=== PATIENT | female | born 1980 | race Caucasian/White ===

== ENCOUNTER 2017-07-09 13:28 | Inpatient (IN) ==
[2017-07-09] MEDS ORDERED: Tdap (Boostrix) Vaccine 0.5 ML SYRINGE IM ONE (14:39)
--- NOTE | 2017-07-09 14:39 | Emergency Department Note ---
Disposition Clinical Impression: Laceration of brachial artery, right side, initial encounter Disposition: Admitted As Inpatient Condition: Undetermined Time of Disposition: 15:50 General Adult HPI - General Chief complaint: ED Wound/Laceration Stated complaint: right Arm/Hand LAC-through glass door Time Seen by Provider: 07/09/17 13:54 Source: patient, EMS Limitations: no limitations Nursing Notes Reviewed: Yes Vital Signs Reviewed: Yes - History of Present Illness HPI Narrative: Approximately 2 hours prior to arrival patient was knocking on a glass door area she knows that a crack in it whenever her arm went through the door. She states she had a tetanus shot approximately 6 years ago. She is complaining of pain and bleeding to her right arm that she could not control. She also complains of pain to this area. Pain Scale: 8 - Related Data Previous Rx's Medication Instructions Recorded Ondansetron [Zofran ODT] 8 mg SL TID #15 tab.rapdis 01/30/17 Allergies Allergy/AdvReac Type Severity Reaction Status Date / Time No Known Allergies Allergy Verified 07/09/17 13:42 All systems ED: reviewed and negative except as stated. Constitutional: Denies: fever, chills Cardiovascular: Denies: chest pain, palpitations, syncope Respiratory: Denies: cough, dyspnea Gastrointestinal: Denies: abdominal pain, nausea, vomiting, diarrhea Genitourinary: Denies: urgency, dysuria, frequency Musculoskeletal: Reports: other (Right arm pain. Laceration to right antecubital fossa.). Denies: back pain, neck pain Integumentary: Denies: rash, abrasion Neurological: Denies: headache, weakness, numbness Past Medical History - Past Medical History Attestation: Yes The following information was validated with the patient. Source: patient Medical history: Reports: no medical history Psychiatric history: Reports: no psych history AUDITOR history: Reports: no AUDITOR history - Social History Smoking Status: Current every day smoker Smokeless Tobacco Status: No Alcohol use: Reports: none Drug use: Reports: none Physical Exam - General Limitations: no limitations General appearance: alert, in distress (Holding her right arm that is bleeding.) - Head Head exam: atraumatic, normocephalic, normal inspection - Eye Eye exam: Present: normal appearance, PERRL, EOMI - ENT ENT exam: normal exam, normal oropharynx, mucous membranes moist - Neck Neck exam: Present: normal inspection, full ROM, trachea midline - Chest Chest inspection: Present: normal inspection, symmetric chest wall rise - Respiratory Respiratory exam: Present: normal lung sounds bilaterally. Absent: respiratory distress - Cardiovascular Cardiovascular exam: Present: regular rate, normal rhythm, normal heart sounds - Abdominal Exam Abdominal exam: Present: soft, Non-Tender, normal bowel sounds. Absent: tenderness, distention, guarding, rebound, rigidity, organomegaly - Extremities Exam Extremities exam: Present: normal inspection, full ROM, normal capillary refill , other (Patient has approximately 270 her laceration to her right antecubital fossa. There is active bleeding there. It is controlled with direct pressure. The bleeding is arterial. Also has a small abrasion to her right forearm. Wound appears clean. Patient has good pulses distal good sensation distal. Full range of motion of all phalanges.). Absent: pedal edema - Back Exam Back exam: Present: normal inspection, full ROM. Absent: tenderness, CVA tenderness (R), CVA tenderness (L) - Neurological Exam Neurological exam: Present: alert, oriented X3 - Psychiatric Psychiatric exam: Present: normal affect, normal mood - Skin Skin exam: Present: warm, dry, intact, normal color. Absent: rash, cyanosis, diaphoresis, erythema Course Course Narrative: Female patient presenting to emergency department complaining of a 2 hour history of right arm bleeding. She states that she was knocking on a glass door whenever". She states her arm went through. She denies any other injuries. On exam she does have approximately 270 her laceration to her right antecubital fossa. This has some arterial bleeding. It is controlled with direct pressure. She states her last tetanus shot was over 6 years ago. We will update this. She does have a small abrasion to the medial aspect of her right forearm as well. No appreciate any other signs of trauma. She states this is accidental. Denies any SI or HI. She does have full range of motion of all of her phalanges. She has normal sensation and motor and pulses distal to this injury. We have discussed the case with Dr. Misty Singh is coming down to see the patient. He ended up taking the patient to surgery. Patient was agreeable to this. - Consultations Consultation #1: I spoke with Dr. May. He is coming to see the patient. Time: 14:35 Vital Signs Temperature 97.8 F 07/09/17 13:42 Pulse Rate 93 07/09/17 13:42 Respiratory Rate 20 07/09/17 13:42 Blood Pressure 119/87 07/09/17 13:42 O2 Sat by Pulse Oximetry 96 07/09/17 13:42 Temperature 97.8 F 07/09/17 13:42 Pulse Rate 88 07/09/17 14:35 Respiratory Rate 18 07/09/17 15:00 Blood Pressure 107/76 07/09/17 15:00 O2 Sat by Pulse Oximetry 99 07/09/17 14:35 Oxygen Delivery Oxygen Delivery Room Air Medical Decision Making - Medical Records Medical records reviewed: Yes I reviewed the patient's medical records. - Lab Data Lab results reviewed: Yes I reviewed the patient's lab results. Result diagrams: 07/09/17 14:50 07/09/17 14:50 Lab Results 07/09/17 07/09/17 07/09/17 Range/Units 14:50 14:50 14:50 WBC 8.3 (4.3-11.1) K/mcL RBC 3.98 (3.82-4.97) M/mcL Hgb 12.4 (11.5-15.4) g/dL Hct 37.5 (35.3-44.9) % MCV 94.2 (83.0-100.0) fL MCH 31.2 (28.0-33.3) pg MCHC 33.1 (31.6-35.5) g/dL RDW 12.8 (11.5-14.5) % Plt Count 231 (140-400) K/mcL MPV 11.3 (9.4-12.4) fL Seg Neutrophils % 62.0 % Lymphocytes % 32.0 % Monocytes % 6.0 % Neutrophils # 5.2 (1.6-8.9) K/mcL Lymphocytes # 2.7 (0.6-4.6) K/mcL Monocytes # 0.5 (0.0-1.3) K/mcL Reactive Lymphocytes Present A (Not Present) Platelet Estimate Normal (Normal) PT 11.2 (9.4-12.1) Seconds INR 1.0 Sodium 137 (136-145) mEq/L Potassium 4.2 (3.5-4.5) mEq/L Chloride 106 (98-109) mEq/L Carbon Dioxide 25 (19-29) mEq/L BUN 12 (7-20) mg/dL Creatinine 0.78 (0.57-1.11) mg/dL Est GFR ( Amer) > 60 (> 60) Est GFR (Non-Af Amer) > 60 (> 60) BUN/Creatinine Ratio 15 (6-26) Glucose 78 (70-99) mg/dL Calculated Osmolality 283 (280-300) Calcium 9.1 (8.6-10.8) mg/dL Attestation Statement - Attestation Attestation: I, Irwin Guajardo, examined this patient and my medical decision-making was reviewed with the SUPPLY ROOM CLERK/PA/Advanced Practice Nurse/Resident Physician. I agree with the documented findings, disposition and treatment plan as described except to the extent set forth below. 36-year-old female presents to the emergency department with multiple lacerations to the right upper extremity. Patient states she was "knocking on a door" and did not realize that there was a crack in the glass. Patient states that her arm went through the glass and she sustained lacerations. Physical evaluation in the emergency department shows superficial lacerations to the right hand and right forearm however there is a deep laceration to the right antecubital space which has pulsatile blood flow when evaluated. Patient was placed in a tourniquet and pressure dressing and the vascular surgeon was contacted. Dr. Morin evaluated the patient in the emergency department and will take the patient to the OR. Vital signs stable in the emergency department.
--- NOTE | 2017-07-09 14:53 | Anesthesia Evaluation PreOp ---
Date of Encounter: 07/09/17 Time of Encounter: 14:50 - Past History Planned Operation: r brachial a lac Cardiac History: Denies any Significant Hx Pulmonary History: Smoker [facility] DEPARTMENT History: Denies Any Significant HX Other Medical History: Denies Any Significant HX Anesthesia History: No Prior Anesthetic Complications, Past Anesthesia (denies fh anesthetic concerns) Test: Negative (lmp today) Alcohol Use: none Drug use: none Medications and Allergies Ondansetron [Zofran ODT] 8 mg SL TID #15 tab.rapdis 01/30/17 [Rx] 3 Allergy/AdvReac Type Severity Reaction Status Date / Time No Known Allergies Allergy Verified 07/09/17 13:42 - Meds/Allergy Pre-op Review Medications Reviewed: Yes Allergies Reviewed: Yes Beta Blockers on Current Med List: No Anesthesia Results - Labs 07/09/17 14:50 Anesthesia Exam O2 Sat Height 1.68 m Weight 65.045 kg O2 Sat by Pulse Oximetry 99 O2 Sat by Pulse Oximetry 96 Vital Signs Temp Pulse Resp BP Pulse Ox 97.8 F 93 20 119/87 96 07/09/17 13:42 07/09/17 13:42 07/09/17 13:42 07/09/17 13:42 07/09/17 13:42 Height: 1.68 Weight: 65 NPO (# of Hours): >8 - HEENT Pupil (Motor): Pupils equal, EOMI Mallampati: I Teeth: Normal Oral Opening: Greater than 3 - [address] DEPARTMENT LOC: Oriented [facility] DEPART[facility] Motor: Normal RUE, Normal LUE, Normal RLE, Normal LLE, Normal Face [address] DEPARTMENT Sensory: Normal: RUE, LUE, RLE, LLE, Face - Cardiac Rhythm: Regular Murmur: None - Pulmonary Breath Sounds: bilateral Clear Respiratory Effort: Symmetrical Anesthesia Assess/Plan ASA Score: 2, E Modified Shivam Scale for Level of Consciousness: Cooperative, oriented, and tranquil Anesthetic Plan: General Monitoring Plan: Standard Monitors Recovery Plan: PACU
[2017-07-09 14:57] LABS: Hematocrit 37.5 % (35.3-44.9); Hemoglobin 12.4 g/dL (11.5-15.4); Mean Corpuscular HGB Conc 33.1 g/dL (31.6-35.5); Mean Corpuscular Hemoglobin 31.2 pg (28.0-33.3); Mean Corpuscular Volume 94.2 fL (83.0-100.0); Mean Platelet Volume 11.3 fL (9.4-12.4); Platelet Count 231 K/mcL (140-400); Red Blood Count 3.98 M/mcL (3.82-4.97); Red Cell Distribution Width 12.8 % (11.5-14.5)
--- NOTE | 2017-07-09 15:00 | Vascular/Endovascular H&P ---
Date of Encounter: 07/09/17 Time of Encounter: 14:40 Assessment and Plan (1) Laceration of brachial artery, right side, initial encounter Current Visit: Yes Status: Acute The patient has a acute laceration to the right upper extremity with pulsatile bleeding. Arterial injury is apparent. She will proceed emergently to the OR for wound exploration and possible arterial repair versus ligation. The risks, benefits and alternatives were discussed and all questions were answered. The patinet expressed understanding and wishes to proceed. Her extremity neurologic exam is limited due to her pain. At this time, she does not appear to have focal nerve deficits. (2) Tobacco abuse Current Visit: Yes Status: Chronic The patient was counseled regarding smoking cessation. She was advised that smoking may lead to limb ischemia and possible limb loss. History of Present Illness Chief complaint: Right upper extremity hemorrhage HPI: Ms. Alfaro is a 36 year old female who states that earlier today she was knocking on a glass door. Unfortunately the door had a crack in it and her arm went through. She immediately noticed pulsatile bleeding from the right arm. She applied pressure and then came to the ER for further evaluation. On arrival she was alert. She complained of left arm pain. She was hemodynamically stable. She was evlauated by the ER and noted to have pulsatile bleeding from her laceration and brachial artery injury was suspected. Vascular surgery was consulted for further evaluation. The patient is alert and comfortable except for right arm and forearm pain. She denies any focal neurologic deficits. 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 She denies chest pain or shortness of breath. Past Med Surg Social Fam HX - Past Medical History Medical history: no medical history Psychiatric history: no psych history - Social History Smoking Status: Current every day smoker Smokeless Tobacco Status: No Alcohol use: none Drug use: none Medications and Allergies Ondansetron [Zofran ODT] 8 mg SL TID #15 tab.rapdis 01/30/17 [Rx] 3 Allergy/AdvReac Type Severity Reaction Status Date / Time No Known Allergies Allergy Verified 07/09/17 13:42 All Systems Review: A 10-system review of systems was performed and is negative for pertinent findings except as documented above in the HPI. Exam Vital Signs, Last 4 Hours Temp Pulse Resp BP Pulse Ox 07/09/17 14:35 88 18 106/92 99 07/09/17 13:42 97.8 F 93 20 119/87 96 General: Present: Conversant, No Apparent Distress HEENT: Present: Atraumatic, Pupils equal Neck: Absent: JVD, Lymphadenopathy, Tracheal deviation Cardiac: Present: Reg Rate and Rhythm, No Murmur Lungs: Present: Normal Breath Sounds, No Wheeze, Rales, Rhonchi Neuro: Present: Alert and responsive, No focal deficits noted, Motor nerves grossly intact (right upper extremity motor function appears limited by pain), Sensory nerves grossly intact Abdomen: Present: Soft, Non-tender Vascular: Present: Normal capillary refill, Pulse, normal (right radial pulse is palpable). Absent: Cyanosis, Edema Skin: Present: Other (multiple right upper extremity abrasions, right arm laceration along distal bicep) Musculoskeletal: Present: No Chest Wall Tenderness
[2017-07-09 15:03] LABS: Prothrombin Time 11.2 Seconds (9.4-12.1)
[2017-07-09] MEDS ORDERED: Lidocaine 1% 20 ML MDV ONE (15:07)
[2017-07-09] MEDS ORDERED: Heparin 1,000 UNITS/500 mL NS 500 ML ONE (15:07)
[2017-07-09 15:14] LABS: BUN/Creatinine Ratio 15 (6-26); Blood Urea Nitrogen 12 mg/dL (7-20); Calcium 9.1 mg/dL (8.6-10.8); Carbon Dioxide 25 mEq/L (19-29); Chloride 106 mEq/L (98-109); Glucose 78 mg/dL (70-99); Osmolality,Calculated 283 (280-300); Potassium 4.2 mEq/L (3.5-4.5); Sodium 137 mEq/L (136-145); eGFR For African Americans > 60 (> 60); eGFR For Non-African Americans > 60 (> 60)
[2017-07-09] MEDS ORDERED: Ringers Solution, Lactated 1,000 ML IVC SCH (15:15)
[2017-07-09 15:34] LABS: Lymphocytes # 2.7 K/mcL (0.6-4.6); Monocytes # 0.5 K/mcL (0.0-1.3); Neutrophils # 5.2 K/mcL (1.6-8.9); Platelet Estimate Normal (Normal); Reactive Lymphocytes Present (Not Present)
[2017-07-09] MEDS ORDERED: Lidocaine -MPF 2% 2 ML VIAL ONE (16:13)
[2017-07-09] MEDS ORDERED: *HR* Propofol 200 MG/20 ML VIAL IVP ONE (16:13)
[2017-07-09] MEDS ORDERED: *HR* Midazolam HCl 2 MG/2 ML VIAL ONE (16:13)
[2017-07-09] MEDS ORDERED: Lidocaine -MPF 4% 5 ML AMPUL ONE (16:14)
[2017-07-09] MEDS ORDERED: *HR* Succinylcholine 200 MG/10 ML VIAL IVP ONE (16:14)
[2017-07-09] MEDS ORDERED: *HR* FentaNYL (PF) 100 MCG/2 ML VIAL ONE (16:14)
[2017-07-09] MEDS ORDERED: *HR* Phenylephrine 10 MG/ML VIAL ONE (16:14)
[2017-07-09] MEDS ORDERED: Dexamethasone 4 MG/ML VIAL ONE (16:14)
[2017-07-09] MEDS ORDERED: EPHEDrine 50 MG/ML VIAL ONE (16:14)
[2017-07-09] MEDS ORDERED: *HR* Rocuronium Bromide 50 MG/5 ML VIAL ONE (16:14)
[2017-07-09] MEDS ORDERED: Ondansetron 4 MG/2 ML VIAL IVP ONE (16:16)
[2017-07-09] MEDS ORDERED: *HR* Promethazine 25 MG/ML VIAL IVP PRN (16:16)
[2017-07-09] MEDS ORDERED: *HR* HYDROmorphone 2 MG/ML SYRINGE ONE (16:18)
[2017-07-09] MEDS ORDERED: *HR* OxyCODONE Immed Rel 5 MG TABLET PO PRN (16:50)
[2017-07-09] MEDS ORDERED: Naloxone 0.4 MG/ML INJ IVP PRN ×2 (16:50→17:54)
[2017-07-09] MEDS ORDERED: *HR* HYDROcodone/Acet 5/325 mg TABLET PO PRN (16:50)
[2017-07-09] MEDS ORDERED: Ondansetron 4 MG/2 ML VIAL IVP PRN ×2 (16:50→17:54)
[2017-07-09] MEDS ORDERED: Acetaminophen 325 MG TABLET PO PRN ×2 (16:50→17:54)
--- NOTE | 2017-07-09 16:50 | Operative Note ---
Date of procedure: 07/09/17 Pre-op diagnosis: Acute right upper extremity hemorrhage due to traumatic laceration Post-op diagnosis: same Procedure: 1. Exploration of right upper extremity traumatic laceration wound. 2. Ligation of transected right brachial artery branch vessel. Complications: None Anesthesia: GETA Surgeon: Lam Morin Estimated blood loss (cc): 20 Specimen: None Condition: stable Disposition: PACU Procedure in Detail: The patient is a 36 year old female who presented to the ER today after sticking her right forearm and arm through a glass door. She developed acute arterial bleeding. She held pressure and was noted to have pulsatile bleeding on arrival to the ER. She is proceeding to the OR for emergent wound exploration and control of her arterial hemorrhage. Procedure: The patient was identified and the gavino to the operating room in stable condition. After the induction of general endotracheal anesthesia, she was prepped and draped in the normal sterile fashion. Using a #15 blade, the right distal anterior arm laceration was extended through the skin and subcutaneous tissue medially and laterally. A self retaining retractor was placed. Upon exploration, Actue, pulsatile flow was noted to be arising deep to the bicep muscle fascia. The artery was noted to be completely transected. The ends were freed from surrounding tissue with blunt and sharp dissection. The ends were then secured with bulldog clamps. The wound was then further inspected, no further bleedin was noted. The brachial artery did not appear to be involved in the region of the injury. Using a doppler, polyphasic radial and ulnar artery signals were identified. Further evxploration of the the transected arterial vessl revealed that it was a small brach of the brachial artery. The ends of the artery were unable to reach without tension. The ends were then suture ligated with 6-0 prolene. The wound was irrigated. No foreign bodies were identified in the wound. The muscle fascia was reapproximated with 2-0 vicryl suture. The subcutaneous tissue was reapproximated with 3-0 Vicryl suture. The skin was reapproximated with 3-0 Monocryl suture. Polyphasic radial and ulnar signals were again confirmed with a doppler. A sterile dressing was applied to the wound. Antibiotic ointment and sterile dressings were also applied to superficial abrasions on the forearm and arm. The patient was extubated and taken to the recovery room in stable condition.
[2017-07-09] MEDS: *HR* HYDROmorphone (PF) 1 MG/ML SYRINGE IVP PRN ×4 (16:56→17:16)
--- NOTE | 2017-07-09 17:29 | Anesthesia Evaluation Post Op ---
Date of Encounter: 07/09/17 Time of Encounter: 17:28 - Vital Signs Vital Signs: Vital Signs/O2 Sat, Most Current Temp Pulse Resp BP Pulse Ox 97.4 F L 68 16 119/83 97 07/09/17 17:19 07/09/17 17:19 07/09/17 17:19 07/09/17 17:19 07/09/17 17:19 - Lungs Lungs: Clear Ascult./Percussion - Airway Airway: Non-obstructed - Cardiovascular Regular Rate - Mental Status Mental Status: Asleep with brisk response to light stimulation - Pain Pain Scale: 4 Pain Scale used: Numeric (1 - 10) - Nausea Vomiting Nausea Vomiting: Not Present - Hydration Hydration: Ice chips, Has not voided - Discharge PostOp Status: Transfer Patient to floor
[2017-07-09] MEDS: *HR* OxyCODONE Immed Rel 5 MG TABLET PO PRN (18:13)
[2017-07-09] MEDS: Nicotine 21 MG PATCH.TD24 TD SCH (18:22)
[2017-07-09] MEDS: ceFAZolin 2,000 MG in D5% in Water 100 ML IVPB SCH (21:16)
[2017-07-09] MEDS: *HR* HYDROcodone/Acet 5/325 mg TABLET PO PRN (21:19)
[2017-07-10] MEDS: *HR* OxyCODONE Immed Rel 5 MG TABLET PO PRN
[2017-07-10] MEDS: ceFAZolin 2,000 MG in D5% in Water 100 ML IVPB SCH (04:51)
[2017-07-10] MEDS: *HR* Heparin 5,000 UNIT/ML VIAL SQ SCH ×2 (04:52→05:02)
[2017-07-10] MEDS: *HR* HYDROcodone/Acet 5/325 mg TABLET PO PRN ×2 (04:52→10:14)
[2017-07-10 05:05] LABS: Basophils % 0.1 %; Hematocrit 36.5 % (35.3-44.9); Hemoglobin 11.9 g/dL (11.5-15.4); Immature Granulocytes % 0.4 % (0-4); Lymphocytes # 1.1 K/mcL (0.6-4.6); Lymphocytes % 9.8 %; Mean Corpuscular HGB Conc 32.6 g/dL (31.6-35.5); Mean Corpuscular Hemoglobin 31.2 pg (28.0-33.3); Mean Corpuscular Volume 95.5 fL (83.0-100.0); Mean Platelet Volume 11.3 fL (9.4-12.4); Monocytes # 0.3 K/mcL (0.0-1.3); Neutrophils # 9.3 K/mcL (1.6-8.9); Platelet Count 223 K/mcL (140-400); Red Blood Count 3.82 M/mcL (3.82-4.97); Segmented Neutrophils % 86.7 %
[2017-07-10 05:20] LABS: BUN/Creatinine Ratio 16 (6-26); Blood Urea Nitrogen 13 mg/dL (7-20); Calcium 8.8 mg/dL (8.6-10.8); Carbon Dioxide 24 mEq/L (19-29); Chloride 104 mEq/L (98-109); Glucose 123 mg/dL (70-99); Osmolality,Calculated 281 (280-300); Potassium 4.6 mEq/L (3.5-4.5); Sodium 135 mEq/L (136-145); eGFR For African Americans > 60 (> 60); eGFR For Non-African Americans > 60 (> 60)
--- NOTE | 2017-07-10 07:48 | Discharge Summary ---
Date of Encounter: 07/10/17 Time of Encounter: 09:00 - Discharge Diagnosis (1) Laceration of brachial artery, right side, initial encounter Priority: Primary Status: Acute Comments: The patient is postoperative day #1 after exploration of her right arm for a laceration with ligation of an arterial branch vessel. Her wound is healing. She has no hematoma, no erythema and no pulsatile mass. She was seen by Dr. Wheeler who reported no neurologic deficits. She will be discharged today without complications. (2) Tobacco abuse Priority: Secondary Status: Chronic Comments: She was counseled regarding smoking cessation. - Discharge Medications Prescriptions: Acetaminophen [Tylenol] 1,000 mg PO Q6HR #90 tablet Ibuprofen [Motrin] 600 mg PO TID PRN #90 tab PRN Reason: POSTOPERATIVE PAIN Home Medications: Acetaminophen [Tylenol] 1,000 mg PO Q6HR #90 tablet 07/10/17 [Rx] Ibuprofen [Motrin] 600 mg PO TID PRN #90 tab 07/10/17 [Rx] Allergies/Adverse Reactions: 3 Allergy/AdvReac Type Severity Reaction Status Date / Time No Known Allergies Allergy Verified 07/09/17 13:42 Date of admission: 07/09/17 18:14 Primary care physician: PCP NONE Consults: [facility]. Procedure(s) Performed: Right arm exploration with ligation of right brachial artery branch. Discharging clinician: Lam Morin Anticipated date of discharge: 07/10/17 - Patient Status Disposition: Home, Self-Care Condition: Good Functional capacity at discharge: independent ambulation Overall status at discharge: patient is back to baseline - Discharge Instructions Instructions: How to Stop Smoking (DC), Laceration (DC), Cigarette Smoking and Your Health (GEN), Peripheral Vascular Disorders (DC), Skin Adhesive Care (DC) Follow Up With: Lam Morin MD [Partnered Physician] - 08/10/17 10:40 am Michael Strickland DO [Resident] - 08/04/17 2:00 pm Additional Instructions: May remove bandage and shower 07/11/17. No swimming or tub baths for 14 days. No lifting more than 10 pounds with the right arm for [address] Morin at [phone] with questions or concerns. - Diet and Activity Activity: increase activity as tolerated Diet: advance to your usual diet - Hospital Course Hospital course: Ms. Alfaro is a 36 year old female admitted yesterday with an acute right arm laceration with arterial hemorrhage. She underwent wound exploration with ligation of an arterial branch vessel. She was seen on postoperative day #1 by ortho/hand surgery and Dr. Wheeler reported no evidence of nerve deficits. She was discharged on postoperative day #1 in stable condition without complications. Time spent discussing smoking cessation with patient: 3 to 10 minutes - Time Spent with Patient Total time spent providing and/or coordinating discharge services: Exam Vital Signs, Last 4 Hours Temp Pulse Resp BP Pulse Ox 07/10/17 07:33 87 97 07/10/17 07:22 97.9 F 80 16 100/63 94 07/10/17 05:00 80 07/10/17 04:01 97.8 F 77 16 103/57 99 General: Present: Conversant, No Apparent Distress Cardiac: Present: Reg Rate and Rhythm Lungs: Present: Normal Breath Sounds Neuro: Present: Alert and responsive, No focal deficits noted, Motor nerves grossly intact, Sensory nerves grossly intact Abdomen: Present: Soft Vascular: Present: Normal capillary refill, Pulse, normal (right radial and ulnar signals polyphasic), Surgical incisions (incision clean, dry and intact without erythema or drainage, no pulsatile mass) Skin: Present: No rashes noted on visualized skin Musculoskeletal: Present: Other (incision clean, dry and intact without erythema or drainage, no pulsatile mass, no hematoma) - VTE Reasons for not Prescribing Prophylaxis: Medical contraindication Documentation of Mechanical Device: Intermittent pneumatic compression device
[2017-07-10] MEDS: Nicotine 21 MG PATCH.TD24 TD SCH (10:14)
[2017-07-10 11:38] VITALS: BP 96/62
--- NOTE | 2017-07-10 13:15 | Orthopedic Consult Note ---
Date of Encounter: 07/10/17 Time of Encounter: 13:12 Assessment and Plan (1) Laceration of brachial artery, right side, initial encounter Current Visit: Yes Status: Acute Right antecubital fossa laceration, no significant concern for underlying neurologic injury. I did discuss treatment options and given [place] suspicion for deep neurologic injury, and no suspicion for a distal biceps laceration, I recommendation would be for activities as tolerated per if okay with if okay with Dr Morin. We did discuss clinical follow-up and she wishes to see us in the office on an as-needed basis which is reasonable. Should she develop any new or worsening concerns she should call the office right away and schedule an appointment. I will be available as needed at this point. I did discuss this with Dr. Morin. History of Present Illness HPI: Ms. Alfaro is a 36 year old female who was admitted yesterday due to a laceration to the right volar antecubital fossa. She underwent operative exploration by Dr. Morin, because of pulsatile bleeding, however there is no brachial artery injury and the bleeding was from an arterial branch which was ligated. This morning she was having swelling of the hand as well as some tingling and I was consult to evaluate for possible nerve injury. On my evaluation the patient indicates that she is currently not having any numbness or tingling and has no deficit with the right hand. She indicates that previous to the injury she occasionally has had some tingling to the tips of the digits and has not had this worked up. She feels that the swelling was causing her symptoms earlier but again, currently she denies any numbness, tingling, or any other associated signs or symptoms. She has mild antebrachial fossa pain as expected. No complaints. Past Med Surg Social Fam HX - Past Medical History Medical history: no medical history Psychiatric history: no psych history - Past Surgical History Surgical History: - Social History Smoking Status: Current every day smoker Smokeless Tobacco Status: No Alcohol use: none Drug use: none Medications and Allergies Acetaminophen [Tylenol] 1,000 mg PO Q6HR #90 tablet 07/10/17 [Rx] Ibuprofen [Motrin] 600 mg PO TID PRN #90 tab 07/10/17 [Rx] 3 Allergy/AdvReac Type Severity Reaction Status Date / Time No Known Allergies Allergy Verified 07/09/17 13:42 All Systems Reviewed: Constitutional and musculoskeletal systems were reviewed and are negative unless otherwise stated in history of present illness. Physical Exam - Constitutional Vitals: Temp Pulse Resp BP Pulse Ox 97.8 F 81 16 96/62 100 07/10/17 11:35 07/10/17 11:35 07/10/17 11:35 07/10/17 11:35 07/10/17 11:35 CONSTITUTIONAL -Vitals reviewed -The patient is well developed, well nourished, well groomed PSYCHIATRIC -Fully alert and oriented x 3 -Pleasant mood RIGHT UPPER EXTREMITY Inspection shows a 6 cm transverse laceration in the antecubital fossa which is well approximated with Dermabond. No redness or concern for infection. Mild tenderness as expected. She has full active and passive motion of shoulder, elbow, wrist, and digits. Motion is slow given her pain, but deliberate she has excellent supination strength and I can palpate an intact biceps tendon. The patient can actively flex and extend all digits, extend the thumb, cross the index and long fingers, make an okay sign, and oppose the thumb. The fingertips are all grossly sensate and well-perfused, and the radial artery pulse is 2+. No areas of decreased sensation along the entire forearm, wrist, hand, or digits. Results - Labs Result Diagrams: 07/10/17 04:52 07/10/17 04:52 Labs: Abnormal lab results Neutrophils # 9.3 K/mcL (1.6-8.9) H 07/10/17 04:52 Reactive Lymphocytes Present (Not Present) A 07/09/17 14:50 Sodium 135 mEq/L (136-145) L 07/10/17 04:52 Potassium 4.6 mEq/L (3.5-4.5) H 07/10/17 04:52 Glucose 123 mg/dL (70-99) H 07/10/17 04:52 H & H 07/10/17 Range/Units 04:52 Hgb 11.9 (11.5-15.4) g/dL Hct 36.5 (35.3-44.9) % All other labs normal. Consult Discharge Plan - Plan Instructions: How to Stop Smoking (DC), Laceration (DC), Cigarette Smoking and Your Health (GEN), Peripheral Vascular Disorders (DC), Skin Adhesive Care (DC) Additional Instructions: May remove bandage and shower 07/11/17. No swimming or tub baths for 14 days. No lifting more than 10 pounds with the right arm for [address] Morin at [phone] with questions or concerns. Referrals: Lam Morin MD [Partnered Physician] - 08/10/17 10:40 am Michael Strickland DO [Resident] - 08/04/17 2:00 pm Prescriptions: Acetaminophen [Tylenol] 1,000 mg PO Q6HR #90 tablet Ibuprofen [Motrin] 600 mg PO TID PRN #90 tab PRN Reason: POSTOPERATIVE PAIN
[2017-07-10] MEDS ORDERED: ceFAZolin 2,000 MG in D5% in Water 100 ML IVPB SCH (22:00)
== END 2017-07-10 13:48 | disposition home or self-care (01) | DRG 909 ==
LOC: 2NNU 13:28 → EMEROO 13:28 → 2NNU 15:01
PROVIDERS: ADMIT Surgery; ATTEND Surgery

== ENCOUNTER 2020-09-04 16:46 | Observation (INO) ==
[2020-09-04] MEDS ORDERED: FLU Vac QV 20-21 (6Month+)/PF 0.5 ML SYRINGE IM ONE (17:04)
[2020-09-04 18:11] LABS: Amphetamine Screen,Urine Negative ng/mL (Cutoff=1000); Barbiturate Screen,Urine Negative ng/mL (Cutoff=200); Benzodiazepines Screen,Urine Negative ng/mL (Cutoff=200); Cannabinoid Screen,Urine Negative ng/mL (Cutoff = 50); Cocaine Screen,Urine Negative ng/mL (Cutoff= 300); Opiate Screen,Urine Negative ng/mL (Cutoff=300); Phencyclidine Screen,Urine Negative ng/mL (Cutoff=25)
[2020-09-04 18:15] LABS: Bacteria,Urine Few per hpf (None-Few); Bilirubin,Urine Negative (Negative); Blood,Urine Negative (Negative); Calcium Oxalate Crystals,Urine Present; Clarity,Urine Turbid (Clear); Color,Urine Yellow (Yellow); Glucose,Urine (UA) Normal (Normal); Ketones,Urine 10 mg/dL (Negative); Leukocyte Esterase,Urine Moderate (Negative); Mucus,Urine Few per lpf (None-Few); Nitrite,Urine Positive (Negative); Protein,Urine Trace mg/dL (Neg-Trace); Specific Gravity,Urine 1.018 (1.010-1.025); Squamous Epithelial Cell,Urine Many per hpf (None-Few); Urobilinogen,Urine Normal (Normal); WBC,Urine 50-100 per hpf (0-3)
== END 2020-09-04 19:20 | disposition home or self-care (01) ==
LOC: 1NENULAB
PROVIDERS: ADMIT Student in an Organized Health Care Education/Training Program; ATTEND Student in an Organized Health Care Education/Training Program

== ENCOUNTER 2020-11-21 06:37 | Inpatient (IN) ==
[2020-11-21] MEDS ORDERED: Famotidine 20 MG/2 ML VIAL IVP PRN (06:52)
[2020-11-21] MEDS ORDERED: Naloxone 0.4 MG/ML INJ IVP PRN (06:52)
[2020-11-21] MEDS ORDERED: Metoclopramide 10 MG/2 ML VIAL IVP PRN ×2 (06:52→10:57)
[2020-11-21] MEDS ORDERED: Ringers Solution, Lactated 1,000 ML IVC SCH ×2 (07:00→10:57)
[2020-11-21] MEDS ORDERED: *HR* Succinylcholine 200 MG/10 ML VIAL IVP ONE (07:01)
[2020-11-21] MEDS ORDERED: Lidocaine -MPF 2% 5 ML VIAL ONE (07:01)
[2020-11-21] MEDS ORDERED: *HR* FentaNYL (PF) 100 MCG/2 ML VIAL ONE (07:01)
[2020-11-21] MEDS ORDERED: *HR* Morphine Sulfate/PF 10 MG/10 ML AMPUL ONE (07:01)
[2020-11-21] MEDS ORDERED: *HR* Propofol 200 MG/20 ML VIAL IVP ONE (07:01)
[2020-11-21] MEDS ORDERED: *HR* Midazolam HCl 2 MG/2 ML VIAL ONE (07:05)
[2020-11-21] MEDS ORDERED: Ondansetron 4 MG/2 ML VIAL ONE (07:06)
[2020-11-21] MEDS ORDERED: EPHEDrine 50 MG/ML VIAL ONE (07:07)
[2020-11-21 07:09] LABS: Basophils % 0.2 %; Eosinophils # 0.1 K/mcL (0.0-0.6); Hemoglobin 12.7 g/dL (11.5-15.4); Immature Granulocytes % 0.5 % (0-4); Lymphocytes # 2.2 K/mcL (0.6-4.6); Mean Corpuscular HGB Conc 32.6 g/dL (31.6-35.5); Mean Corpuscular Hemoglobin 30.3 pg (28.0-33.3); Mean Corpuscular Volume 93.1 fL (83.0-100.0); Mean Platelet Volume 12.8 fL (9.4-12.4); Monocytes # 0.7 K/mcL (0.0-1.3); Monocytes % 5.5 %; Platelet Count 248 K/mcL (140-400); Red Blood Count 4.19 M/mcL (3.82-4.97); Red Cell Distribution Width 14.5 % (11.5-14.5); Segmented Neutrophils % 74.8 %; White Blood Count 12.1 K/mcL (4.3-11.1)
[2020-11-21] MEDS ORDERED: *HR* Oxytocin 10 UNIT/ML VIAL IM ONE (07:17)
[2020-11-21] MEDS ORDERED: Ketamine *HR* 500 MG/10 ML MDV ONE (07:24)
[2020-11-21] MEDS ORDERED: Dexamethasone 4 MG/ML VIAL ONE (07:43)
[2020-11-21] MEDS ORDERED: Ketorolac 30 MG/ML VIAL ONE (07:43)
[2020-11-21] MEDS ORDERED: *HR* Promethazine 25 MG/ML VIAL ONE (07:44)
[2020-11-21] MEDS ORDERED: CeFAZolin 2 GM/120 ML BAG IVPB SCH (08:00)
[2020-11-21] MEDS ORDERED: Oxytocin 20 units/ LR 1000 mL 20 UNIT/1,000 ML BAG IVC ONE (09:34)
[2020-11-21] MEDS ORDERED: *HR* HYDROMORPHONE 2 MG/ML VIAL ONE (09:39)
[2020-11-21] MEDS ORDERED: Oxytocin 20 units/ LR 1000 mL 20 UNIT/1,000 ML BAG IVC SCH ×2 (10:57)
[2020-11-21] MEDS ORDERED: Rho Immune Globulin 1,500 UNIT SYRINGE IM ONE (10:57)
[2020-11-21] MEDS ORDERED: Ondansetron 4 MG/2 ML VIAL IVP PRN (10:57)
[2020-11-21] MEDS ORDERED: Prenatal Vit/FA 1 EACH TABLET PO SCH (10:57)
[2020-11-21] MEDS ORDERED: Sennosides 8.6 MG TABLET PO PRN (10:57)
[2020-11-21] MEDS: *HR* OxyCODONE/APAP 5/325 TABLET PO PRN ×3 (11:12→20:01)
[2020-11-21] MEDS: Ibuprofen 600 MG TABLET PO PRN ×2 (11:13→16:28)
[2020-11-21] MEDS: metroNIDAZOLE 500 MG TABLET PO SCH ×3 (11:13→20:01)
[2020-11-21] MEDS: cephALEXin 500 MG CAPSULE PO SCH ×2 (15:09→20:00)
[2020-11-21] MEDS: Simethicone 80 MG TAB.CHEW PO PRN (16:28)
[2020-11-21 17:46] LABS: Amphetamine Screen,Urine Positive ng/mL (Cutoff=1000); Barbiturate Screen,Urine Negative ng/mL (Cutoff=200); Benzodiazepines Screen,Urine Positive ng/mL (Cutoff=200); Cannabinoid Screen,Urine Negative ng/mL (Cutoff = 50); Cocaine Screen,Urine Negative ng/mL (Cutoff= 300); Opiate Screen,Urine Positive ng/mL (Cutoff=300); Phencyclidine Screen,Urine Negative ng/mL (Cutoff=25)
[2020-11-22] MEDS: *HR* OxyCODONE/APAP 5/325 TABLET PO PRN ×2 (00:34→08:04)
[2020-11-22 04:36] LABS: Basophils # 0.1 K/mcL (0.0-0.2); Basophils % 0.2 %; Eosinophils % 0.2 %; Hematocrit 27.2 % (35.3-44.9); Immature Granulocytes % 0.7 % (0-4); Lymphocytes # 2.8 K/mcL (0.6-4.6); Lymphocytes % 12.1 %; Mean Corpuscular HGB Conc 32.4 g/dL (31.6-35.5); Mean Corpuscular Hemoglobin 30.4 pg (28.0-33.3); Mean Corpuscular Volume 94.1 fL (83.0-100.0); Monocytes # 1.3 K/mcL (0.0-1.3); Monocytes % 5.7 %; Neutrophils # 18.4 K/mcL (1.6-8.9); Platelet Count 228 K/mcL (140-400); Red Blood Count 2.89 M/mcL (3.82-4.97); Red Cell Distribution Width 14.5 % (11.5-14.5); Segmented Neutrophils % 81.1 %
[2020-11-22 04:39] LABS: Eosinophils # 0.1 K/mcL (0.0-0.6); Hemoglobin 8.8 g/dL (11.5-15.4); White Blood Count 22.7 K/mcL (4.3-11.1)
[2020-11-22 07:45] VITALS: BP 113/64
[2020-11-22] MEDS: cephALEXin 500 MG CAPSULE PO SCH (07:59)
[2020-11-22] MEDS: metroNIDAZOLE 500 MG TABLET PO SCH (07:59)
[2020-11-22] MEDS: Simethicone 80 MG TAB.CHEW PO PRN (08:04)
[2020-11-22] MEDS: Ibuprofen 600 MG TABLET PO PRN (08:04)
== END 2020-11-22 10:21 | disposition home or self-care (01) | DRG 540 ==
LOC: 1NENULAB → OBSVTOIN 06:37 → 1NENUOBS 10:18
PROVIDERS: ADMIT Obstetrics & Gynecology; ATTEND Obstetrics & Gynecology